=== PATIENT | male | born 1980 | race Caucasian/White ===

== ENCOUNTER 2023-08-09 14:57 | Emergency (ER) | payer OTHER, BC ==
[2023-08-09 15:13] LABS: Absolute Lymphocytes (CBC) 1.6 K/uL (0.7-4.9); Hematocrit 48.5 % (39.6-49.0); Lymphocytes % 19.8 % (15.3-44.8); MCV 90.7 fL (80-100); MPV 7.1 fL (7.6-11.3); Platelets 285 thou/uL (152-406); RBC Red Blood Cell Count 5.35 M/uL (4.33-5.43)
[2023-08-09] MEDS ORDERED: DIAZEPAM 10 MG/2 ML INJ SYRINGE ONE (15:25)
[2023-08-09 15:28] LABS: Albumin 4.5 g/dL (3.4-5.0); Bilirubin Total 0.8 mg/dL (0.2-1.0); Potassium 3.5 mEq/L (3.5-5.1); Protein, Total 8.5 g/dL (6.4-8.2)
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
--- NOTE | 2023-08-09 15:28 | EDPHYS ---
Physician Documentation [facility] Name: Juanjose Alonzo Age: 43 yrs Sex: Male : 1980 Arrival Date: 08/09/2023 Time: 14:57 Bed 2 Private MD: Janusz Bonilla HPI: 08/09 15:21 This 43 yrs old Male presents to ER via EMS with complaints of Shoulder nadeem Injury. 15:21 The patient or guardian complains of decreased range of motion, pain, that is acute. nadeem left shoulder. Context: resulted from a fall, The patient experiences decreased range of motion, The patient notes a deformity. Onset: The symptoms/episode began/occurred just prior to arrival. Modifying factors: the symptoms are alleviated by nothing. The symptoms are aggravated by nothing. Associated signs and symptoms: The patient has no apparent associated signs or symptoms. Severity of symptoms: At their worst the symptoms were mild, moderate, in the emergency department the symptoms are unchanged. The patient has experienced similar episodes in the past, several times. Historical: - Allergies: 14:58 No Known Allergies; aa5 - PMHx: 15:25 None; rs5 - PSHx: 15:25 left shoulder surgery; rs5 - Immunization history:: Adult Immunizations unknown. - Family history:: not pertinent. - Social history:: Smoking status: Patient denies any tobacco usage or history of. ROS: 15:21 Constitutional: Negative for fever, chills, and weight loss, Eyes: Negative for injury, nadeem pain, redness, and discharge, ENT: Negative for injury, pain, and discharge, Neck: Negative for injury, pain, and swelling, Cardiovascular: Negative for chest pain, palpitations, and edema, Respiratory: Negative for shortness of breath, cough, wheezing, and pleuritic chest pain, Abdomen/GI: Negative for abdominal pain, nausea, vomiting, diarrhea, and constipation, Back: Negative for injury and pain, : Negative for injury, bleeding, discharge, and swelling, Skin: Negative for injury, rash, and discoloration, Neuro: Negative for headache, weakness, numbness, tingling, and seizure, Psych: Negative for depression, anxiety, suicide ideation, homicidal ideation, and hallucinations, Allergy/Immunology: Negative for hives, rash, and allergies, Endocrine: Negative for neck swelling, polydipsia, polyuria, polyphagia, and marked weight changes, Hematologic/Lymphatic: Negative for swollen nodes, abnormal bleeding, and unusual bruising, 15:21 MS/extremity: Positive for decreased range of motion, pain, tenderness, of the anterior aspect of left shoulder and posterior aspect of left shoulder, Exam: 15:21 Constitutional: This is a well developed, well nourished patient who is awake, alert, nadeem and in no acute distress. Head/Face: Normocephalic, atraumatic. Eyes: Pupils equal round and reactive to light, extra-ocular motions intact. Lids and lashes normal. Conjunctiva and sclera are non-icteric and not injected. Cornea within normal limits. Periorbital areas with no swelling, redness, or edema. ENT: Nares patent. No nasal discharge, no septal abnormalities noted. Tympanic membranes are normal and external auditory canals are clear. Oropharynx with no redness, swelling, or masses, exudates, or evidence of obstruction, uvula midline. Mucous membranes moist. Neck: Trachea midline, no thyromegaly or masses palpated, and no cervical lymphadenopathy. Supple, full range of motion without nuchal rigidity, or vertebral point tenderness. No Meningismus. Chest/axilla: Normal chest wall appearance and motion. Nontender with no deformity. No lesions are appreciated. Cardiovascular: Regular rate and rhythm with a normal S1 and S2. No gallops, murmurs, or rubs. Normal PMI, no JVD. No pulse deficits. Respiratory: Lungs have equal breath sounds bilaterally, clear to auscultation and percussion. No rales, rhonchi or wheezes noted. No increased work of breathing, no retractions or nasal flaring. Abdomen/GI: Soft, non-tender, with normal bowel sounds. No distension or tympany. No guarding or rebound. No evidence of tenderness throughout. Back: No spinal tenderness. No costovertebral tenderness. Full range of motion. Male : Normal genitalia with no discharge or lesions. Skin: Warm, dry with normal turgor. Normal color with no rashes, no lesions, and no evidence of cellulitis. Neuro: Awake and alert, GCS 15, oriented to person, place, time, and situation. Cranial nerves II-XII grossly intact. Motor strength 5/5 in all extremities. Sensory grossly intact. Cerebellar exam normal. Normal gait. Psych: Awake, alert, with orientation to person, place and time. Behavior, mood, and affect are within normal limits. 15:21 Musculoskeletal/extremity: Extremities: grossly normal except: noted in the posterior aspect of left shoulder: decreased ROM, deformity, pain, ROM: limited active range of motion due to pain, limited passive range of motion due to pain, Circulation is intact in all extremities. Sensation intact. Compartment Syndrome exam of affected extremity: is normal. DVT Exam: negative Homans' sign noted on exam, no appreciated bluish discoloration, no erythema, no increased warmth, pain, swelling, tenderness, Vital Signs: 14:58 BP 133 / 94; Pulse 90; Resp 24 S; Pulse Ox 100% on R/A; aa5 15:07 Weight 96.62 kg; Height 5 ft. 9 in. ; rs5 16:05 BP 140 / 92; Pulse 88; Resp 22; Pulse Ox 99% on R/A; rs5 16:22 BP 135 / 87; Pulse 79; Resp 18; Pulse Ox 99% on R/A; rs5 15:07 Body Mass Index 31.45 (96.62 kg, 175.26 cm) rs5 Procedures: 15:24 Reduction: of the left shoulder, using traction, manipulation, Immobilized with [facility] shoulder immobilizer. Patient tolerated well. Post reduction film - reveals normal alignment. Joint Treatment:. MDM: 14:58 Patient medically screened. [facility] 15:24 Differential diagnosis: Anterior dislocation with fracture. Data reviewed: vital signs, [facility] nurses notes, lab test result(s), radiologic studies, plain films. Consideration of Admission/Observation Escalation of care including admission/observation considered. Management of patient was discussed with the following: [place] Representative: ortho. I considered the following discharge prescriptions or medication management in the emergency department Medications were administered in the Emergency Department. See MAR. Independent interpretation of the following test(s) in the Emergency Department X-Ray: My interpretation is dislocated , reduced. Test considered but Not performed: MRI: no mri. Historians other than the Patient: EMS: ems well informed. Care significantly affected by the following chronic conditions: hx of shoulder dislocation. Counseling: I had a detailed discussion with the patient and/or guardian regarding the historical points, exam findings, and any diagnostic results supporting the discharge/admit diagnosis, lab results, radiology results, the need for outpatient follow up, for definitive care, a family practitioner, a orthopedic surgeon. 08/09 14:59 Order name: CBC with Diff; Complete Time: 15:56 [facility] 08/09 14:59 Order name: Comprehensive Metabolic Panel; Complete Time: 15:56 [facility] 08/09 14:59 Order name: Shoulder (1 View) XRAY [facility] 08/09 15:21 Order name: Shoulder Left (2 View) XRAY [facility] 08/09 15:21 Order name: Shoulder Immobilizer; Complete Time: 15:30 [facility] 08/09 15:21 Order name: Ice pack; Complete Time: 15:30 nadeem Administered Medications: 15:01 Drug: NS 0.9% IV 1000 ml IV at 1 bolus Per protocol; 1000 mL bolus Route: IV; Rate: 1 rs5 bolus; Site: right wrist; 15:17 Follow up: Response: No adverse reaction rs5 15:02 Drug: Ketorolac IVP 30 mg IVP once Route: IVP; Site: right wrist; rs5 15:16 Follow up: Response: No adverse reaction rs5 15:02 Drug: HYDROmorphone IVP 1 mg IVP once Route: IVP; Site: right wrist; rs5 15:17 Follow up: Response: No adverse reaction; Pain is decreased rs5 15:02 Drug: HYDROmorphone IVP 1 mg IVP once Route: IVP; Site: right wrist; rs5 15:17 Follow up: Response: No adverse reaction; Pain is decreased rs5 15:02 Drug: Ondansetron IVP 8 mg IVP once; over 2 minutes Route: IVP; Site: right wrist; rs5 15:17 Follow up: Response: No adverse reaction rs5 15:02 Drug: Diazepam IVP 2 mg IVP once Route: IVP; Site: right wrist; rs5 15:17 Follow up: Response: No adverse reaction rs5 15:02 Drug: Diazepam IVP 2 mg IVP once Route: IVP; Site: right wrist; rs5 15:17 Follow up: Response: No adverse reaction rs5 Disposition Summary: 08/09/23 15:27 Discharge Ordered Notes: Location: Home naedem Problem: new nadeem Symptoms: have improved nadeem Condition: Stable nadeem Diagnosis - Other dislocation of left shoulder joint nadeem - Recurrent dislocation, left shoulder - reduced nadeem Followup: nadeem - With: Private Physician - When: 2 - 3 days - Reason: Recheck today's complaints, Continuance of care, Re-evaluation by your physician Followup: nadeem - With: Maykel Mccurdy MD - When: 2 - 3 days - Reason: Recheck today's complaints, Re-evaluation by your physician Discharge Instructions: - Discharge Summary Sheet nadeem - Shoulder Dislocation nadeem - Shoulder Dislocation, [id number] nadeem - Recurrent Shoulder Laxity and Instability nadeem Forms: - Medication Reconciliation Form nadeem - Thank You Letter nadeem - Antibiotic Education nadeem - Prescription Opioid Use nadeem - Patient Portal Instructions [facility] - Leadership Thank You Letter [facility] Prescriptions: - acetaminophen-codeine 300-30 mg Oral tablet - take 2 tablet ORAL route every 6 hours as needed for pain; 24 tablet; Refills: nadeem 0, Product Selection Permitted - Valium 5 mg Oral Tablet - take 1 tablet ORAL route every 8 hours As needed; 20 tablet; Refills: 0, nadeem Product Selection Permitted - Diclofenac Sodium 75 mg Oral tablet, delayed release (enteric coated) - take 1 tablet ORAL route 2 times per day; 20 tablet; Refills: 0, Product nadeem Selection Permitted Signatures: Dispatcher [employer] Janusz Yancey MD MD cha Calderon, Audri, RN RN aa5 Dino Luna RN RN rs5
[2023-08-09] MEDS ORDERED: NA CHLORIDE 0.9% 1,000 ML ONE (15:34)
--- NOTE | 2023-08-09 16:45 | RAD REPORT ---
EXAM DESCRIPTION: Shoulder 1 View - 08/09/2023 3:10 pm CLINICAL HISTORY: PAIN COMPARISON: No comparisons TECHNIQUE: Internal and external rotation views of the right shoulder were obtained. FINDINGS: There is no acute displaced fracture. Anteri anteroinferior or dislocation of the humeral head relative to the glenoid. AC joint is normal in appearance. No other acute or suspicious findings . IMPRESSION: Anteroinferior shoulder dislocation.
--- NOTE | 2023-08-09 16:57 | RAD REPORT ---
EXAM DESCRIPTION: RAD - Shoulder Left 2 View - 08/09/2023 3:47 pm CLINICAL HISTORY: PAIN COMPARISON: Shoulder 1 View dated 08/09/2023 TECHNIQUE: Internal and external rotation views of the left shoulder were obtained. FINDINGS: There is no fracture or dislocation. AC joint is normal in appearance. Glenohumeral joint appears preserved. Lobulated calcific density adjacent to the greater tuberosity. No other acute or s uspicious findings. IMPRESSION: No acute osseous abnormality. Lobulated calcific densities adjacent to the greater tuber osity, suggestive of sequelae of calcific tendinitis.
== END 2023-08-09 16:40 | disposition home or self-care (01) ==
LOC: ER 14:57
PROC: 0RSKXZZ Reposition Left Shoulder Joint, External Approach (ICD-10-PCS; principal; 2023-08-09)
DX: M24.412 Recurrent dislocation, left shoulder (principal)
CPT/HCPCS: 85025; 36415; 80053; 73020; 73030; 23650; J3360; J7030